=== PATIENT | female | born 1940 | race Caucasian/White ===

== ENCOUNTER → 2023-08-16 | Outpatient (CLI) | payer MEDICARE | END | disposition home or self-care (01) | LOC: ORTHO 07:59 | PROVIDERS: ATTEND Orthopaedic Surgery | DX: M17.11 Unilateral primary osteoarthritis, right knee (principal); M25.561 Pain in right knee; E88.89 Other specified metabolic disorders; M76.891 Other specified enthesopathies of right lower limb, excluding foot; R60.0 Localized edema ==